=== PATIENT | female | born 1965 | race Caucasian/White ===

== ENCOUNTER → 2016-10-29 | Outpatient (CLI) | payer OTHER ==
[~2016-10-29] MED LIST: ALBU1AER9 INH; ALPR0.5T3 PO; AMIT50TA3 PO; ASPI325T45 PO; ASTN; ATEN-173 PO; CALC0.2510 PO; CYAN1CAP3 INJ; CYNI1000 INJ; ERGO50002 PO; FLUO20CA34 PO; FLUO20CA35 PO; FRCT/ PO; HYDR-5688 PO; INDO50CA97 PO; LEVO100T PO; LEVO150T PO; OMEP20CA9 PO; ONDA8TAB12 PO; PEDICHW53 PO; PHEN37.585 PO; SYMIN/8045 INH; TIZA1CAP2 PO; VITA100C4 PO; VITA1CRE PO; VNTHFA/IN INH; [UNRECOGNIZED DRUG - CODE] PO
--- NOTE | 2016-10-29 09:09 | DIAGNOSTIC IMAGING REPORT ---
SINGLE CONTRAST UPPER GI SERIES CLINICAL HISTORY: Gastroesophageal reflux disease. History of gastric bypass surgery. COMPARISON STUDY: Fluoroscopic upper GI series dated 09/24/2014. TECHNIQUE: A single contrast upper GI series was performed. Spot images of the esophagus and stomach were obtained in multiple obliquities both upright and prone. FINDINGS: The patient swallowed barium without difficulty. The esophagus is structurally normal without evidence of intrinsic or extrinsic mass. The esophageal mucosal pattern is normal. Mild dysmotility is seen in the distal third of the esophagus. Gastroesophageal reflux was observed during the examination. The gastroesophageal junction distends normally. A small sliding-type hiatal hernia is identified. There are postoperative changes consistent with a Laila-en-Y gastric bypass surgery. The gastrojejunostomy is widely patent. No extraluminal contrast is identified. There is no filling of the excluded stomach. There is no evidence of mass or ulceration on this single contrast examination. Fluoroscopy time: 0.9 minutes. Fluoroscopic images: 31 IMPRESSION: 1. Findings are consistent with a Laila-en-Y gastric bypass surgery. The gastrojejunostomy is patent and no extraluminal contrast is seen. 2. The esophagus is morphologically normal. Mild dysmotility is observed. 3. Gastroesophageal reflux was observed. 4. There is a small sliding-type hiatal hernia. Electronically signed by: Markus Noriega M.D. 10/29/2016 9:08 AM Dictated Date/Time: 10/29/2016 9:04 AM
== END | disposition home or self-care (01) ==
LOC: C.RAD 08:31
PROVIDERS: ATTEND Surgery
DX: R10.9 Unspecified abdominal pain (principal); K91.1 Postgastric surgery syndromes

== ENCOUNTER 2017-04-22 13:14 | Emergency (ER) | payer OTHER ==
[~2017-04-22] VITALS: Ht 157.5 cm; Wt 102.2 kg
[~2017-04-22 13:14] MED LIST changes: -CYNI1000 INJ; -FLUO20CA35 PO; -FRCT/ PO; -PHEN37.585 PO; -VITA1CRE PO; -VNTHFA/IN INH
[2017-04-22 13:19] VITALS: TEMP 36.5; Ht 157.5 cm; Wt 102.2 kg
--- NOTE | 2017-04-22 13:54 | EMERGENCY ROOM VISIT NOTE ---
ED Visit Note First contact with patient: 13:25 HPI: constant CP and intermittent lightheadedness PE: AFVSS, NAD NC/AT RRR, no murmurs CTAB Abd soft NT/ND Ext: no edema, erythema Neuro: grossly intact Plan: EKG unremarkable. Trop negative in the setting of > 6 hours of sx. Heart score 1, low risk. ACS unlikely. D-dimer negative. Plan for pcp f/u. I reviewed the patient's past medical history, medications, and visit nursing notes. I discussed the case with the resident, examined the patient, and agree with the findings and plan as documented in the residents note.
--- NOTE | 2017-04-22 14:10 | EMERGENCY ROOM VISIT NOTE ---
History First contact with patient: 13:25 Chief Complaint: ABNORMAL LABS Stated Complaint: HEART ATTACK SX-ABNORMAL LABS History of Present Illness The patient is a 51 year old female who presents to the Emergency Room with complaints of chest heaviness. She was initially seen by her PCP this morning after she presented with complaints of chest heaviness and a funny feeling in her chest . EKG in the office revealed sinus bradycardia with no ST changes. She was recommended to go to the ER for further workup. Complains of chest heaviness across her entire chest with no radiation. She feels that her chest pain is chronic and intermittent. Denies any shortness of breath but states that she has a funny sensation in her chest and also felt a little dizzy. Stated that she had a syncopal episode on Saturday when she was eating in her bed and passed out. she is not sure how long she was passed out and this event was not witnessed by anyone. She complains of a migraine headache that started this morning associated with nausea, photophobia and phonophobia. Denies any fevers or chills, cough, long haul travel, immobilization, calf tenderness. She is a nonsmoker and has a history of PTSD and angina. Family history of heart disease in her father in his 70s. Review of Systems See above for pertinent positives & negatives. A total of 10 systems reviewed and were otherwise negative. Past Medical/Surgical History Medical Problems: (1) Anxiety Social History Smoking Status: Never Smoker Marital Status: Housing Status: lives with significant other Occupation Status: disabled Current/Historical Medications Scheduled Albuterol Hfa (Ventolin Hfa), 2 PUFFS INH Q4H Alprazolam (Xanax Xr), 0.5 MG PO DAILY Atenolol (Tenormin), 12.5 MG PO DAILY Azelastine Hcl (Astelin Nasal [place]), 2 SPRAYS NA BID Calcitriol (Rocaltrol Cap), 0.5 MCG PO DAILY Cyanocobalamin (Cyanocobalamin), 1,000 MCG INJ Q3MO Ergocalciferol (Drisdol), 50,000 UNIT PO WK Fluoxetine (Prozac), 20 MG PO TID Levothyroxine Sodium (Synthroid), 100 MCG PO 5XWK Levothyroxine Sodium (Synthroid), 150 MCG PO 2XWK Ondansetron Hcl (Zofran), 8 MG PO BID Pediatric Multiple Vitamin W/ (Flintstones Gummies), 1 DOSE PO DAILY Phentermine Hcl (Adipex P), 37.5 MG PO DAILY Vitamin E (Topical) (Vitamin E), 1,000 INTER.UNIT PO DAILY Physical Exam Vital Signs Date Time Temp Pulse Resp B/P (MAP) Pulse Ox O2 Delivery O2 Flow Rate FiO2 04/22/17 16:26 61 16 140/81 98 04/22/17 16:19 61 16 140/81 98 Room Air 04/22/17 14:58 49 20 153/89 97 Room Air 04/22/17 14:30 53 04/22/17 13:19 36.5 58 18 140/82 94 Room Air Physical Exam GENERAL: Patient is in no acute distress. HEENT: No acute trauma, normocephalic atraumatic, mucous membranes moist, no nasal congestion, no scleral icterus. NECK: No stridor, no adenopathy, no meningismus, trachea is midline. LUNGS: Clear to auscultation bilaterally, no wheeze, no rhonchi, breath sounds equal. HEART: Without murmurs gallops or rubs, bradycardia ABDOMEN: Soft, nontender, bowel sounds positive. EXTREMITIES: No cyanosis or edema, full range of motion of all the joints without pain or difficulty. NEUROLOGIC: Oriented x 3, no acute motor or sensory deficits, no focal weakness. SKIN: No rash, no jaundice, no diaphoresis. Medical Decision & Procedures ER Provider Diagnostic Interpretation: CHEST ONE VIEW PORTABLE CLINICAL HISTORY: Atypical chest pain COMPARISON STUDY: 02/13/2014 FINDINGS: The cardiac and mediastinal contours are normal. There is no evidence of focal pulmonary consolidation. There is no evidence of failure. No pleural effusions are visualized.[ IMPRESSION: No active disease in the chest. Laboratory Results 04/22/17 14:50 04/22/17 14:50 Test 04/22/17 14:50 Red Blood Count 4.46 M/uL (4.2-5.4) Mean Corpuscular Volume 88.3 fL (80-100) Mean Corpuscular Hemoglobin 28.9 pg (25-34) Mean Corpuscular Hemoglobin Concent 32.7 g/dl (32-36) RDW Standard Deviation 46.5 fL (36.4-46.3) RDW Coefficient of Variation 14.3 % (11.5-14.5) Mean Platelet Volume 9.7 fL (7.4-10.4) D-Dimer 240 ug/L FEU (0-500) Anion Gap 5.0 mmol/L (3-11) Est Creatinine Clear Calc Drug Dose 101.0 ml/min Estimated GFR () 109.7 Estimated GFR (Non- 94.7 BUN/Creatinine Ratio 10.7 (10-20) Calcium Level 9.5 mg/dl (8.5-10.1) Total Bilirubin 0.4 mg/dl (0.2-1) Aspartate Amino Transf (AST/SGOT) 13 U/L (15-37) Alanine Aminotransferase (ALT/SGPT) 21 U/L (12-78) Alkaline Phosphatase 106 U/L (45-117) Troponin I < 0.015 ng/ml (0-0.045) Total Protein 7.2 gm/dl (6.4-8.2) Albumin 3.5 gm/dl (3.4-5.0) Globulin 3.7 gm/dl (2.5-4.0) Albumin/Globulin Ratio 0.9 (0.9-2) Medical Decision Prior records/ancillary studies reviewed. Triage Nursing notes reviewed. Additional history obtained from the . The patient's history was concerning for chest pain. Differential diagnosis: Etiologies such as cardiac ischemia, aortic dissection, pulmonary embolism, pneumonia, pneumothorax, musculoskeletal, infections, pericarditis, myocarditis , esophageal rupture, gastrointestinal, as well as others were entertained. Physical examination: As above. ER treatment provided: CBC, CMP, Troponin and CXR were ordered On reassessment the patient felt better. Diagnostic interpretation by me: The electrocardiogram was negative for pathologic change. The labs were unremarkable Imaging studies: Chest x-ray as above By the evaluation outlined above emergent etiologies such as cardiac ischemia, aortic dissection, pulmonary embolism, pneumonia, pneumothorax, infections, pericarditis, myocarditis, gastrointestinal, as well as others were deemed relatively unlikely. The patient was informed about the findings as listed above. All questions were answered and the patient was pleased with the treatment. Return instructions were outlined and the patient was discharged in stable condition. Referral: The patient was referred back to her primary care physician for follow-up in 2 to 3 days for a recheck of the current condition. 51 y/o F here with c/o intermittent chest pain which started a few days ago. She presented to her PCPs office with chest heaviness and EKG was done which revealed sinus bradycardia with no ST changes. She was recommended to go to the ER for further testing. Her lab work including troponins, EKG, chest x-ray was unremarkable. Her chest pain was likely secondary to anxiety. She was recommended to follow up with her PCP in 2-3 days or return to the ER if she developed any difficulty breathing, chest pain. Impression Primary Impression: Anxiety Departure Information Referrals Diane Kaufman D.O. (PCP) Patient Instructions My [facility] Resident Tracking Resident Involvement: Resident Care Provided Care Provided: Adult ED
--- NOTE | 2017-04-22 14:32 | DIAGNOSTIC IMAGING REPORT ---
CHEST ONE VIEW PORTABLE CLINICAL HISTORY: Atypical chest pain COMPARISON STUDY: 02/13/2014 FINDINGS: The cardiac and mediastinal contours are normal. There is no evidence of focal pulmonary consolidation. There is no evidence of failure. No pleural effusions are visualized.[ IMPRESSION: No active disease in the chest. Electronically signed by: James Jama M.D. 04/22/2017 2:31 PM Dictated Date/Time: 04/22/2017 2:30 PM
[2017-04-22] MEDS ORDERED: VITA1CRE PO (14:50)
[2017-04-22] MEDS ORDERED: VNTHFA/IN INH (14:50)
[2017-04-22] MEDS ORDERED: FRCT/ PO (14:50)
[2017-04-22 15:05] LABS: HEMATOCRIT 39.4 % (37-47); MEAN CELL VOLUME 88.3 fL (80-100); MEAN CORPUSCULAR HEMOGLOBIN 28.9 pg (25-34); MEAN CORPUSCULAR HGB CONC 32.7 g/dl (32-36); MEAN PLATELET VOLUME 9.7 fL (7.4-10.4); PLATELET COUNT 274 K/uL (130-400); RED BLOOD COUNT 4.46 M/uL (4.2-5.4); WHITE BLOOD COUNT 5.99 K/uL (4.8-10.8)
[2017-04-22] MEDS ORDERED: CYNI1000 INJ (15:15)
[2017-04-22] MEDS ORDERED: FLUO20CA35 PO (15:15)
[2017-04-22] MEDS ORDERED: PHEN37.585 PO (15:15)
[2017-04-22 15:28] LABS: ALT/SGPT 21 U/L (12-78); BLOOD UREA NITROGEN 8 mg/dl (7-18); BUN/CREATININE RATIO 10.7 (10-20); CALCIUM 9.5 mg/dl (8.5-10.1); CARBON DIOXIDE 31 mmol/L (21-32); CHLORIDE 106 mmol/L (98-107); CREATININE 0.73 mg/dl (0.60-1.20); GLUCOSE 81 mg/dl (70-99); POTASSIUM 4.3 mmol/L (3.5-5.1); SODIUM 142 mmol/L (136-145)
[2017-04-22 15:32] LABS: ALB/GLOB RATIO 0.9 (0.9-2); ALKALINE PHOSPHATASE 106 U/L (45-117); AST/SGOT 13 U/L (15-37)
[2017-04-22 16:26] VITALS: BP 140/81; PULSE 61; O2SAT 98
== END 2017-04-22 16:26 | disposition home or self-care (01) ==
LOC: C.EDB 13:16 → C.EDC 16:26
DX: F41.9 Anxiety disorder, unspecified (principal); F43.10 Post-traumatic stress disorder, unspecified; Z82.49 Family history of ischemic heart disease and other diseases of the circulatory system; Z79.899 Other long term (current) drug therapy

== ENCOUNTER 2022-07-08 10:34 | Inpatient (IN) ==
--- NOTE | 2022-07-08 11:23 | Emergency Department Note ---
Impression & Plan Acute hypoxemic respiratory failure, Influenza A, Asthma exacerbation ED Provider Note NAME: YOAN ARAUJO AGE: 56 SEX: F : 1965 ARRIVES VIA: Walk-In INFORMANT: Patient, ED PROVIDER(S): Josias Woods MD Chief Complaint: Body aches, chest pain, headache HPI: Patient presents due to concern for nonproductive cough body aches and chest pains. The patient significant other recently was admitted for RSV. Patient does complain of some shortness of breath and does have a history of asthma. Patient states that her symptoms began last evening. The patient does complain of a heaviness in the chest that is nonradiating no associated nausea or vomiting or diaphoresis. Patient does not complain of exertional symptoms. No history of DVT or PE no leg swelling or calf pain. Patient has been taking [id number] medications but without improvement in symptoms. Patient's headache is frontal achy and nonradiating. No prior history of heart disease. The patient has been trying her inhalers ROS: See HPI for pertinent positives and negatives. A total of 10 systems were reviewed and otherwise negative. Past medical history: See below Surgical history: See below Social history: See below Physical Exam: GENERAL: NAD, wearing a mask, non-toxic. EYE EXAM: Normal conjunctiva. PERRL, no anisocoria and EOM's grossly intact w/o pain. NECK: Supple, no nuchal rigidity, no adenopathy, non-tender. No signs of meningismus. FROM of the neck with good chin to chest and neck extension. No stridor. LUNGS: Scant end expiratory wheezes in the bases. Normal chest wall mechanics. Chest: Reproducible sternal chest wall pain. HEART: Tachycardic and regular, no MRG. ABDOMEN: Abdomen soft, non-tender, normo-active bowel sounds, no masses, no rebound or guarding. BACK: No CVA TTP. SKIN: No rashes and no bruising. UPPER EXTREMITIES: Upper extremities are grossly normal. LOWER EXTREMITIES: Grossly normal, no edema. Negative Homans' sign bilaterally. NEURO EXAM: A&O x3, cranial nerves II-XII grossly intact, normal speech, moves all 4 extremities. Good [id number], no drift. No sensory deficits. Differential diagnoses: Cardiac ischemia, aortic dissection, pulmonary embolism, pneumothorax, pneumonia, pericarditis, myocarditis, esophageal rupture, GERD, cholecystitis, pancreatitis, musculoskeletal, as well as other pathologies. Course: Patient was seen and evaluated the bedside. Full history physical exam was performed. EKG interpreted by me Sinus tachycardia, rate of 111, normal intervals normal axis no ST elevations, T wave inversions in the lateral leads. These do appear to be more prominent from comparison EKG completed January 11, 2019. Imaging Studies: See Below Cardiac monitoring: An order was placed for continuous cardiac monitoring. The monitor shows a rate of 102 with tachycardic and regular rhythm. MDM: Patient presents due to concern for chest pain and headache and myalgias. Patient's presentation does sound consistent with viral etiology. Patient did have blood work completed along with an EKG troponin chest x-ray. Viral swab also ordered. Given the patient's history of asthma steroids were ordered. 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 Do think the patient could tolerate a one-time dose. Toradol was ordered. Hallucinations listed as an adverse reaction believe the patient may benefit from the Toradol. Patient is not meningitic or encephalopathic and has a nonfocal neurologic exam. Do not believe she requires CT of the head. The patient did have persistent hypoxemia even after several neb treatments. Given this with the associated Flu 2 believe the patient would benefit from inpatient treatment. Tamiflu was ordered. RSV and COVID-negative. Patient's kidney function is unremarkable. Mild leukopenia with a normal H&H and platelet count. I did speak the on-call hospitalist Rox Cook PA-C and the patient was admitted by the [facility] service. Critical Care: I have personally spent 35 minutes of critical care time in direct management of this patient. This includes bedside care, interpretation of diagnostic studies, and testing, discussion with consultants, patient, and family members, and other require inpatient management activities. This 35 minutes is in excess of all separately billable procedures. Past Med/Surg History Medical History Acquired hypothyroidism Anxiety Asthma Cancer Depression Heart disease HTN (hypertension) Left knee DJD Left knee pain RADHA (obstructive sleep apnea) Surgical History H/O gastric bypass H/O knee surgery H/O total thyroidectomy H/O vaginal hysterectomy Family History Other Asthma Cancer Social History Smoking Status: Never smoker Tobacco Type: Cigarettes Hx Alcohol Use: No Hx Substance Use: No Preferred Language: Finnish Communication Ability: Effective Religious Assistant Required: No Beliefs That Will Affect Care: None Current Living Situation: Spouse Other Information That Helps Us Care for You: No Feels Safe at Home: Yes Safety Concerns: Feels Safe At This Time Allergies Allergies Allergy/AdvReac Type Severity Reaction Status Date / Time Iodinated Contrast Media Allergy Severe FLUSHING, Verified 11/21/21 22:51 SHORTNESS OF BREATH lidocaine Allergy Severe SHORTNESS Verified 11/21/21 22:51 OF BREATH ranitidine Allergy Severe NAUSEA, Verified 11/21/21 22:51 HIVES Penicillins Allergy Intermediate HIVES Verified 11/21/21 22:51 Sulfa (Sulfonamide Allergy Intermediate HIVES Verified 11/21/21 22:51 Antibiotics) chlorpromazine Allergy Mild Unknown Verified 11/21/21 22:51 prochlorperazine Allergy Mild Unknown Verified 11/21/21 22:51 promethazine Allergy Mild Unknown Verified 11/21/21 22:51 clarithromycin AdvReac Severe RASH Verified 11/21/21 22:51 clonazepam AdvReac Severe PARANOIA Verified 11/21/21 22:51 Corticosteroids AdvReac Severe ALTERED Verified 11/21/21 22:51 (Glucocorticoids) PERSONALITY doxycycline AdvReac Intermediate INEFFECTIVE Verified 11/21/21 22:51 fentanyl AdvReac Intermediate VOMITING, Verified 11/21/21 22:51 HEADACHE, ketorolac AdvReac Intermediate HALLUCINATI Verified 11/21/21 22:51 ONS tramadol AdvReac Intermediate HALLUCINATE Verified 11/21/21 22:51 Home Meds Home Medications Medication Instructions Recorded Confirmed albuterol sulfate 90 mcg/actuation 2 puff inhalation Q4H PRN COUGH, 01/11/19 07/08/22 aerosol inhaler WHEEZE, PRIOR TO EXERCISE, SOB calcitriol 0.25 mcg capsule 0.25 mcg PO DAILY 01/11/19 07/08/22 citalopram 40 mg tablet 40 mg PO DAILY 01/11/19 07/08/22 cyanocobalamin (vitamin B-12) 1,000 mcg IM .[id number] 01/11/19 07/08/22 1,000 mcg/mL injection solution metoprolol tartrate 25 mg tablet 12.5 mg PO BID 01/11/19 07/08/22 ondansetron 8 mg disintegrating 8 mg PO Q12H PRN Nausea 01/11/19 07/08/22 tablet pediatric multivitamin no.49 1 tab PO DAILY 01/11/19 07/08/22 (Flintstones Gummies chewable tablet) raloxifene 60 mg tablet 60 mg PO DAILY 01/11/19 07/08/22 amitriptyline 10 mg tablet 20 mg PO HS 11/21/21 07/08/22 azelastine 137 mcg (0.1 %) nasal 2 spray intranasal DAILY PRN 11/21/21 07/08/22 spray aerosol Congestion fluticasone propionate 44 2 puff inhalation BID 11/21/21 07/08/22 mcg/actuation HFA aerosol inhaler (Flovent HFA) ipratropium 0.5 mg-albuterol 3 mg 3 ml inhalation QID PRN Shortness 11/21/21 07/08/22 (2.5 mg base)/3 mL nebulization Of Breath soln levothyroxine 175 mcg tablet 175 mcg PO DAILYBB 11/21/21 07/08/22 lorazepam 1 mg tablet 1 mg PO TID PRN Anxiety 11/21/21 07/08/22 omeprazole 20 mg capsule,delayed 20 mg PO DAILYBB 11/21/21 07/08/22 release Results & Data (ED) Vital Signs Vital Signs - 24 hr 07/08/22 10:38 07/08/22 12:33 07/08/22 13:00 Temperature 36.9 C Temperature Source Temporal Artery Scan Pulse Rate 117 H 112 H Pulse Rate from SpO2 Sensor 112 H Respiratory Rate 20 20 Respiratory Effort / Characteristics Short of Breath Blood Pressure 174/108 H 155/100 H 152/98 H Blood Pressure Mean 130 118 116 Blood Pressure Position Sitting Pulse Oximetry 91 98 Oxygen Delivery Method Room Air Room Air Oxygen Flow Rate Sepsis Recent Fever Within 48 Hours No Sepsis New/Unexplained Change in Mental Status N/A Sepsis Action Taken by Nursing No Action Required 07/08/22 13:00 07/08/22 13:30 07/08/22 14:00 Temperature Temperature Source Pulse Rate 106 H 103 H Pulse Rate from SpO2 Sensor 107 H 103 H Respiratory Rate 26 H 11 L Respiratory Effort / Characteristics Blood Pressure 146/100 H Blood Pressure Mean 115 Blood Pressure Position Pulse Oximetry 90 89 L 89 L Oxygen Delivery Method Room Air Room Air Room Air Oxygen Flow Rate Sepsis Recent Fever Within 48 Hours Sepsis New/Unexplained Change in Mental Status Sepsis Action Taken by Nursing 07/08/22 14:00 07/08/22 14:30 07/08/22 15:00 Temperature Temperature Source Pulse Rate 117 H 112 H Pulse Rate from SpO2 Sensor 117 H 113 H Respiratory Rate 26 H 18 Respiratory Effort / Characteristics Blood Pressure 156/103 H Blood Pressure Mean 120 Blood Pressure Position Pulse Oximetry 93 93 Oxygen Delivery Method Nasal Cannula Oxygen Flow Rate 2 Sepsis Recent Fever Within 48 Hours Sepsis New/Unexplained Change in Mental Status Sepsis Action Taken by Nursing 07/08/22 15:00 Temperature Temperature Source Pulse Rate 114 H Pulse Rate from SpO2 Sensor 114 H Respiratory Rate 25 H Respiratory Effort / Characteristics Blood Pressure Blood Pressure Mean Blood Pressure Position Pulse Oximetry 92 Oxygen Delivery Method Oxygen Flow Rate Sepsis Recent Fever Within 48 Hours Sepsis New/Unexplained Change in Mental Status Sepsis Action Taken by [facility] Medications Current Medication List: was personally reviewed by me Laboratory Data Attestation: I reviewed the patient's lab results. Result diagrams: 07/08/22 12:10 07/08/22 12:10 Lab Results 07/08/22 07/08/22 07/08/22 Range/Units 12:10 12:10 12:10 WBC 4.78 L (4.8-10.8) K/ul RBC 4.56 (3.93-5.22) M/uL Hgb 12.4 (12.0-16.0) g/dl Hct 38.9 (34.1-44.9) % MCV 85.3 (80.0-100.0) fL MCH 27.2 (25.0-34.0) pg MCHC 31.9 L (32.0-36.0) g/dL RDW Std Deviation 47.6 H (36.4-46.3) fL RDW Coeff of Jacy 15.4 H (11.5-14.5) % Plt Count 233 (130-400) K/uL MPV 10.1 (9.4-12.3) fL Immature Gran % (Auto) 0.6 % Neut % (Auto) 69.4 % Lymph % (Auto) 10.0 % [place] % (Auto) 18.8 % Eos % (Auto) 0.4 % Baso % (Auto) 0.8 % Neut # (Auto) 3.31 (1.4-6.5) K/uL Lymph # (Auto) 0.48 L (1.2-3.4) K/uL [place] # (Auto) 0.90 H (0.24-0.82) K/uL Eos # (Auto) 0.02 (0-0.50) K/uL Baso # (Auto) 0.04 (0-0.2) K/uL Immature Gran # (Auto) 0.03 H (0.00-0.02) K/uL PT 10.9 (9.0-12.0) Seconds INR 1.0 (0.9-1.1) Sodium 139 (136-145) mmol/L Potassium 3.9 (3.5-5.1) mmol/L Chloride 102 (98-107) mmol/L Carbon Dioxide 28 (21-32) mmol/L Anion Gap 9 (3-11) BUN 9 (6-23) mg/dl Creatinine 0.80 (0.6-1.2) mg/dl Est Cr Clr Drug Dosing 94.4 ml/min Est GFR ( Amer) 94.9 ml/min Est GFR (Non-Af Amer) 81.8 ml/min BUN/Creatinine Ratio 11.3 (10-20) Glucose 116 H (70-99(Fasting)) mg/dl Calcium 9.1 (8.5-10.1) mg/dl Magnesium 1.7 (1.7-2.4) mg/dl Total Bilirubin 0.4 (0.2-1.0) mg/dl AST 17 (13-39) U/L ALT 15 (7-52) U/L Alkaline Phosphatase 89 (34-104) U/L Troponin I High Sens 5.5 (0-14) pg/ml Total Protein 7.4 (6.0-8.3) gm/dl Albumin 4.2 (3.4-5.0) gm/dl Globulin 3.2 (2.5-4.0) gm/dl Albumin/Globulin Ratio 1.3 (0.9-2) TSH (0.300-4.500) uIu/ml Free T4 (0.61-1.60) ng/dl SARS-CoV-2 (PCR) (Negative) Influenza Type A (PCR) (Neg) Influenza Type B (PCR) (Neg) RSV (RT-PCR) (Neg) 07/08/22 07/08/22 Range/Units 12:10 12:10 WBC (4.8-10.8) K/ul RBC (3.93-5.22) M/uL Hgb (12.0-16.0) g/dl Hct (34.1-44.9) % MCV (80.0-100.0) fL MCH (25.0-34.0) pg MCHC (32.0-36.0) g/dL RDW Std Deviation (36.4-46.3) fL RDW Coeff of Jacy (11.5-14.5) % Plt Count (130-400) K/uL MPV (9.4-12.3) fL Immature Gran % (Auto) % Neut % (Auto) % Lymph % (Auto) % [place] % (Auto) % Eos % (Auto) % Baso % (Auto) % Neut # (Auto) (1.4-6.5) K/uL Lymph # (Auto) (1.2-3.4) K/uL [place] # (Auto) (0.24-0.82) K/uL Eos # (Auto) (0-0.50) K/uL Baso # (Auto) (0-0.2) K/uL Immature Gran # (Auto) (0.00-0.02) K/uL PT (9.0-12.0) Seconds INR (0.9-1.1) Sodium (136-145) mmol/L Potassium (3.5-5.1) mmol/L Chloride (98-107) mmol/L Carbon Dioxide (21-32) mmol/L Anion Gap (3-11) BUN (6-23) mg/dl Creatinine (0.6-1.2) mg/dl Est Cr Clr Drug Dosing ml/min Est GFR ( Amer) ml/min Est GFR (Non-Af Amer) ml/min BUN/Creatinine Ratio (10-20) Glucose (70-99(Fasting)) mg/dl Calcium (8.5-10.1) mg/dl Magnesium (1.7-2.4) mg/dl Total Bilirubin (0.2-1.0) mg/dl AST (13-39) U/L ALT (7-52) U/L Alkaline Phosphatase (34-104) U/L Troponin I High Sens (0-14) pg/ml Total Protein (6.0-8.3) gm/dl Albumin (3.4-5.0) gm/dl Globulin (2.5-4.0) gm/dl Albumin/Globulin Ratio (0.9-2) TSH 0.039 L (0.300-4.500) uIu/ml Free T4 1.04 (0.61-1.60) ng/dl SARS-CoV-2 (PCR) NEGATIVE (Negative) Influenza Type A (PCR) Positive A* (Neg) Influenza Type B (PCR) Negative (Neg) RSV (RT-PCR) Negative (Neg) Administered Medications Albuterol (Albut/Ipratrop 3mg/0.5mg Neb 3 Ml Vial) 3 ml NEB QIDR REYES; Protocol Stop: 08/07/22 18:59 Last Admin: 07/08/22 19:47 Dose: 3 ml Documented By: CS Amitriptyline HCl (Amitriptyline Hcl 10 Mg Tab) 20 mg PO HS REYES Stop: 08/07/22 20:59 Last Admin: 07/08/22 19:41 Dose: 20 mg Documented By: WILIAM Enoxaparin Sodium (Enoxaparin Inj 40 Mg/0.4 Ml Syr) 40 mg SQ Q24H REYES Stop: 08/07/22 19:59 Last Admin: 07/08/22 19:39 Dose: 40 mg Documented By: BL Metoprolol Tartrate (Metoprolol Tartrate 25 Mg Tab) 12.5 mg PO BID REYES Stop: 08/07/22 20:59 Last Admin: 07/08/22 19:42 Dose: 12.5 mg Documented By: WILIAM Discontinued Medications Acetaminophen (Acetaminophen 500 Mg Tab) 1,000 mg PO NOW STA Stop: 07/08/22 11:40 Last Admin: 07/08/22 12:11 Dose: 1,000 mg Documented By: [id number] Albuterol (Albut/Ipratrop 3mg/0.5mg Neb 3 Ml Vial) 3 ml INH NOW STA Stop: 07/08/22 11:40 Last Admin: 07/08/22 12:11 Dose: 3 ml Documented By: [id number] Albuterol (Albut/Ipratrop 3mg/0.5mg Neb 3 Ml Vial) 3 ml NEB NOW STA; Protocol Stop: 07/08/22 13:02 Last Admin: 07/08/22 13:22 Dose: 3 ml Documented By: [id number] Citalopram Hydrobromide (Citalopram 40 Mg Tab) 40 mg PO NOW STA Stop: 07/08/22 15:12 Last Admin: 07/08/22 16:31 Dose: 40 mg Documented By: [id number] Sodium Chloride (Nss 1000ml) 1,000 mls @ 999 mls/hr IV .Q1H1M REYES Stop: 07/08/22 12:45 Last Infusion: 07/08/22 13:35 Dose: 0 mls/hr Documented By: [id number] Admin: 07/08/22 12:12 Dose: 999 mls/hr Documented By: [id number] Sodium Chloride (Nss 1000ml) 1,000 mls @ 999 mls/hr IV .Q1H1M ONE Stop: 07/08/22 14:55 Last Infusion: 07/08/22 16:16 Dose: 0 mls/hr Documented By: [id number] Admin: 07/08/22 14:21 Dose: 999 mls/hr Documented By: [id number] Ketorolac Tromethamine (Ketorolac Tromethamine 15 Mg/Ml Vial) 10 mg IV NOW ONE Stop: 07/08/22 11:43 Last Admin: 07/08/22 12:12 Dose: 10 mg Documented By: [id number] Menthol (Cough Drop (Sugar Free) Aaliyah 24 Aaliyah/1 Box) Confirm Administered Dose 24 aaliyah BUCCAL .STK-MED ONE Stop: 07/08/22 18:40 Last Admin: 07/08/22 18:53 Dose: 24 aaliyah Documented By: [id number] Methylprednisolone (Methylprednisolone 125 Mg/2 Ml Vial) 40 mg IV NOW STA Stop: 07/08/22 11:40 Last Admin: 07/08/22 12:12 Dose: 40 mg Documented By: [id number] Metoprolol Tartrate (Metoprolol Tartrate 25 Mg Tab) 12.5 mg PO NOW STA Stop: 07/08/22 15:12 Last Admin: 07/08/22 16:13 Dose: 12.5 mg Documented By: [id number] Oseltamivir Phosphate (Oseltamivir Phosphate 75 Mg Cap) 75 mg PO NOW STA; Protocol Stop: 07/08/22 13:48 Last Admin: 07/08/22 14:21 Dose: 75 mg Documented By: [id number] Imaging Data Radiologist's Impression: Chest X-Ray 07/08/22 11:39 XR chest 1V portable HISTORY: 56 years-old Female weakness acute weakness COMPARISON: Chest and rib radiographs 11/21/2021 TECHNIQUE: AP view of the chest FINDINGS: Cardiomediastinal and hilar silhouettes are within normal limits. No pneumothorax, pleural effusion, airspace consolidation or overt pulmonary edema. Degenerative changes of the shoulders and spine. IMPRESSION: No acute process. ACT 112: Negative or not required by law. The above report was generated using voice recognition software. It may contain grammatical, syntax or spelling errors. Electronically signed by: Stanley Verma M.D. 07/08/2022 12:17 PM Discharge Plan Visit Data Chief Complaint: Illness Stated Complaint: CHEST PAIN ED Provider: Josias Woods Discharge Problem: Acute hypoxemic respiratory failure, Influenza A, Asthma exacerbation Patient Disposition: Admitted As Inpatient Discharge Instructions Interventions: ED Discharge Assessment Last Done: 07/08/22 18:33
[2022-07-08] MEDS ORDERED: methylPREDNISolone 125 MG/2 ML VIAL IV STA (11:39)
[2022-07-08] MEDS ORDERED: ALBUT/IPRATROP 3MG/0.5MG NEB 3 ML VIAL INH STA (11:39)
[2022-07-08] MEDS ORDERED: ACETAMINOPHEN 500 MG TAB PO STA (11:39)
[2022-07-08] MEDS ORDERED: KETOROLAC TROMETHAMINE 15 MG/ML VIAL IV ONE (11:42)
[2022-07-08] MEDS ORDERED: SODIUM CHLORIDE 0.9% 1000ML 1,000 ML IV SCH (11:45)
--- NOTE | 2022-07-08 12:18 | XRay Report ---
XR chest 1V portable HISTORY: 56 years-old Female weakness acute weakness COMPARISON: Chest and rib radiographs 11/21/2021 TECHNIQUE: AP view of the chest FINDINGS: Cardiomediastinal and hilar silhouettes are within normal limits. No pneumothorax, pleural effusion, airspace consolidation or overt pulmonary edema. Degenerative changes of the shoulders and spine. IMPRESSION: No acute process. ACT 112: Negative or not required by law. The above report was generated using voice recognition software. It may contain grammatical, syntax o r spelling errors. Electronically signed by: Stanley Verma M.D. 07/08/2022 12:17 PM
[2022-07-08 12:31] LABS: Basophils # (auto) 0.04 K/uL (0-0.2); Basophils % (auto) 0.8 %; Eosinophils # (auto) 0.02 K/uL (0-0.50); Eosinophils % (auto) 0.4 %; Hematocrit (blood only) 38.9 % (34.1-44.9); Hemoglobin 12.4 g/dl (12.0-16.0); Immature Granulocytes # (auto) 0.03 K/uL (0.00-0.02); Immature Granulocytes % (auto) 0.6 %; Lymphocytes # (auto) 0.48 K/uL (1.2-3.4); Mean Corpuscular Hemoglobin 27.2 pg (25.0-34.0); Mean Corpuscular Hgb Conc 31.9 g/dL (32.0-36.0); Mean Corpuscular Volume 85.3 fL (80.0-100.0); Mean Platelet Volume 10.1 fL (9.4-12.3); Monocytes % (auto) 18.8 %; Neutrophils # (auto) 3.31 K/uL (1.4-6.5); Neutrophils % (auto) 69.4 %; Platelet Count 233 K/uL (130-400); RDW Coefficient of Variation 15.4 % (11.5-14.5); RDW Standard Deviation 47.6 fL (36.4-46.3); Red Blood Count 4.56 M/uL (3.93-5.22); White Blood Count 4.78 K/ul (4.8-10.8)
[2022-07-08 12:42] LABS: Prothrombin Time 10.9 Seconds (9.0-12.0)
[2022-07-08 12:52] LABS: Albumin Globulin Ratio 1.3 (0.9-2); Albumin Level 4.2 gm/dl (3.4-5.0); BUN Creatinine Ratio 11.3 (10-20); Bilirubin,Total 0.4 mg/dl (0.2-1.0); Calcium 9.1 mg/dl (8.5-10.1); Creatinine Clr Calc Pharmacy 94.4 ml/min; Est GFR (African American) 94.9 ml/min; Est GFR (Non-African American) 81.8 ml/min; Globulin 3.2 gm/dl (2.5-4.0); Magnesium 1.7 mg/dl (1.7-2.4); Potassium 3.9 mmol/L (3.5-5.1); Total Protein 7.4 gm/dl (6.0-8.3)
[2022-07-08 12:57] LABS: Troponin I High Sensitivity 5.5 pg/ml (0-14)
[2022-07-08] MEDS ORDERED: ALBUT/IPRATROP 3MG/0.5MG NEB 3 ML VIAL NEB STA (13:01)
[2022-07-08 13:05] LABS: Thyroid Stimulating Hormone 0.039 uIu/ml (0.300-4.500)
[2022-07-08 13:37] LABS: T4 Free Thyroxine 1.04 ng/dl (0.61-1.60)
[2022-07-08 13:45] LABS: Influenza B virus by PCR Negative (Neg); RSV by PCR Negative (Neg); SARS CoV2 RNA(COVID-19) Ceph NEGATIVE (Negative)
[2022-07-08 13:47] LABS: Influenza A virus by PCR Positive (Neg)
[2022-07-08] MEDS ORDERED: OSELTAMIVIR PHOSPHATE 75 MG CAP PO STA (13:47)
[2022-07-08] MEDS ORDERED: SODIUM CHLORIDE 0.9% 1000ML 1,000 ML IV ONE (13:55)
--- NOTE | 2022-07-08 14:57 | History & Physical Report ---
Date of Service July 08, 2022 Assessment & Plan (1) Acute hypoxemic respiratory failure: (2) Influenza A: (3) Asthma exacerbation: (4) Depression: (5) Anxiety: (6) Acquired hypothyroidism: (7) RADHA (obstructive sleep apnea): Plan This is a 56yo F with a PMH of asthma, hypertension, depression, anxiety, history of gastric bypass, hypothyroidism, RADHA and other medical problems listed below who presents with flulike symptoms and chest tightness since yesterday and was found to have hypoxia and Flu A. Acute hypoxic respiratory failure Influenza A Asthma exacerbation Developed symptoms yesterday, + for influenza A CXR did not show acute abnormalities ABG pending Received solumedrol in ED. Will continue steroids with prednisone 40mg daily in AM Duonebs QIDR, supplemental oxygen, continue Tamiflu Abnormal EKG EKG noted some lateral T wave changes which are seen on previous EKGs Initial high sensitive troponin negative. Will check once more Monitor on telemetry, repeat EKG in a.m. Anxiety Depression Given missed dose of citalopram. Home Ativan as needed Hypertension Given missed dose of Lopressor in ED. Give evening dose as well Hypothyroidism Continue levothyroxine RADHA CPAP use HS at home. Currently on [place] supplemental O2 DVT Ppx: SQ lovenox Code status: FULL PCP: Mandeep Dispo: Admitted to [facility] tele Patient seen in collaboration with Dr. Waters. Please see addendum. History of Present Illness Chief Complaint: flulike sx, SOB Primary Care Provider: Diane Kaufman, DO This is a 56yo F with a PMH of asthma, hypertension, depression, anxiety, history of gastric bypass, hypothyroidism, RADHA and other medical problems listed below who presents with flulike symptoms and chest tightness since yesterday. Patient started to feel poorly yesterday with chills, body aches, congestion with mild productive cough, wheezing and chest tightness that is non-radiating. Chest discomfort does not feel similar to when she had a heart attack. Also endorsing nausea and diarrhea but no vomiting. 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 Has ongoing urinary incontinence. Did not check if she had a fever. No headache, vomiting, dysuria or constipation. Allergies Allergy/AdvReac Type Severity Reaction Status Date / Time Iodinated Contrast Media Allergy Severe FLUSHING, Verified 11/21/21 22:51 SHORTNESS OF BREATH lidocaine Allergy Severe SHORTNESS Verified 11/21/21 22:51 OF BREATH ranitidine Allergy Severe NAUSEA, Verified 11/21/21 22:51 HIVES Penicillins Allergy Intermediate HIVES Verified 11/21/21 22:51 Sulfa (Sulfonamide Allergy Intermediate HIVES Verified 11/21/21 22:51 Antibiotics) chlorpromazine Allergy Mild Unknown Verified 11/21/21 22:51 prochlorperazine Allergy Mild Unknown Verified 11/21/21 22:51 promethazine Allergy Mild Unknown Verified 11/21/21 22:51 clarithromycin AdvReac Severe RASH Verified 11/21/21 22:51 clonazepam AdvReac Severe PARANOIA Verified 11/21/21 22:51 Corticosteroids AdvReac Severe ALTERED Verified 11/21/21 22:51 (Glucocorticoids) PERSONALITY doxycycline AdvReac Intermediate INEFFECTIVE Verified 11/21/21 22:51 fentanyl AdvReac Intermediate VOMITING, Verified 11/21/21 22:51 HEADACHE, ketorolac AdvReac Intermediate HALLUCINATI Verified 11/21/21 22:51 ONS tramadol AdvReac Intermediate HALLUCINATE Verified 11/21/21 22:51 Home Medications Medication Instructions Recorded Confirmed Type albuterol sulfate 90 mcg/actuation 2 puff inhalation Q4H PRN COUGH, 01/11/19 07/08/22 History aerosol inhaler WHEEZE, PRIOR TO EXERCISE, SOB calcitriol 0.25 mcg capsule 0.25 mcg PO DAILY 01/11/19 07/08/22 History citalopram 40 mg tablet 40 mg PO DAILY 01/11/19 07/08/22 History cyanocobalamin (vitamin B-12) 1,000 mcg IM [id number] 01/11/19 07/08/22 History 1,000 mcg/mL injection solution metoprolol tartrate 25 mg tablet 12.5 mg PO BID 01/11/19 07/08/22 History ondansetron 8 mg disintegrating 8 mg PO Q12H PRN Nausea 01/11/19 07/08/22 History tablet pediatric multivitamin no.49 1 tab PO DAILY 01/11/19 07/08/22 History (Flintstones Gummies chewable tablet) raloxifene 60 mg tablet 60 mg PO DAILY 01/11/19 07/08/22 History amitriptyline 10 mg tablet 20 mg PO HS 11/21/21 07/08/22 History azelastine 137 mcg (0.1 %) nasal 2 spray intranasal DAILY PRN 11/21/21 07/08/22 History spray aerosol Congestion fluticasone propionate 44 2 puff inhalation BID 11/21/21 07/08/22 History mcg/actuation HFA aerosol inhaler (Flovent HFA) ipratropium 0.5 mg-albuterol 3 mg 3 ml inhalation QID PRN Shortness 11/21/21 07/08/22 History (2.5 mg base)/3 mL nebulization Of Breath soln levothyroxine 175 mcg tablet 175 mcg PO DAILYBB 11/21/21 07/08/22 History lorazepam 1 mg tablet 1 mg PO TID PRN Anxiety 11/21/21 07/08/22 History omeprazole 20 mg capsule,delayed 20 mg PO DAILYBB 11/21/21 07/08/22 History release Past Med/Surg History Medical History (Updated 07/08/22 @ 18:02 by Rox Cook PA-C) Acquired hypothyroidism Anxiety Asthma Cancer Depression Heart disease HTN (hypertension) Left knee DJD Left knee pain RADHA (obstructive sleep apnea) Surgical History (Updated 07/08/22 @ 17:56 by Rox Cook PA-C) H/O gastric bypass H/O knee surgery H/O total thyroidectomy H/O vaginal hysterectomy Family History Other Asthma Cancer Social History Smoking Status: Former smoker Tobacco Type: Cigarettes Preferred Language: Moroccan Feels Safe at Home: Yes Review of Systems Review of Systems: At least ten systems reviewed and negative except as noted in the HPI. Physical Exam Physical Exam: Please see Dr. Waters's addendum for physical exam. Results & Data Results & Data ([facility]) Vital Signs (Past 12 Hours) Vital Signs Temp Pulse Resp BP Pulse Ox O2 Del Method O2 Flow Rate 07/08/22 14:00 117 H 26 H 93 Nasal Cannula 2 07/08/22 14:00 146/100 H 89 L Room Air 07/08/22 13:30 103 H 11 L 89 L Room Air 07/08/22 13:00 106 H 26 H 90 Room Air 07/08/22 13:00 152/98 H 07/08/22 12:33 112 H 20 155/100 H 98 Room Air 07/08/22 10:38 36.9 C 117 H 20 174/108 H 91 Room Air Laboratory Results Short CBC 07/08/22 Range/Units 12:10 WBC 4.78 L (4.8-10.8) K/ul Hgb 12.4 (12.0-16.0) g/dl Hct 38.9 (34.1-44.9) % Plt Count 233 (130-400) K/uL BMP 07/08/22 12:10 Sodium 139 Potassium 3.9 Chloride 102 Carbon Dioxide 28 BUN 9 Creatinine 0.80 Glucose 116 H Calcium 9.1 Liver Function 07/08/22 Range/Units 12:10 Total Bilirubin 0.4 (0.2-1.0) mg/dl AST 17 (13-39) U/L ALT 15 (7-52) U/L Alkaline Phosphatase 89 (34-104) U/L Albumin 4.2 (3.4-5.0) gm/dl Diagnostic Findings Chest X-Ray 07/08/22 11:39 XR chest 1V portable HISTORY: 56 years-old Female weakness acute weakness COMPARISON: Chest and rib radiographs 11/21/2021 TECHNIQUE: AP view of the chest FINDINGS: Cardiomediastinal and hilar silhouettes are within normal limits. No pneumothorax, pleural effusion, airspace consolidation or overt pulmonary edema. Degenerative changes of the shoulders and spine. IMPRESSION: No acute process. ACT 112: Negative or not required by law. The above report was generated using voice recognition software. It may contain grammatical, syntax or spelling errors. Electronically signed by: Stanley Verma M.D. 07/08/2022 12:17 PM Supervising Physician Co-Signing Physician Notes Date of Service: July 08, 2022 History and physical exam performed by me. History notable for 56-year-old woman who presented with cough, congestion, shortness of breath, myalgias, headache, chills, an episode of diarrhea started yesterday. Also reports central chest pressure especially with cough and shortness of breath which is improving in ER. Reports chronic lower abd pain which PCP is working up, chronic urinary incontinence Reported positive contact of RSV, her boyfriend last week. On exam, General: Obese, in no distress Eyes: PERRL, conjunctivae normal, not pale, anicteric sclerae, EOM intact bilaterally ENMT: External ear and nose normal, oropharynx normal Respiratory: On nasal cannula, no respiratory distress, Scattered rhonchi Cardiovascular: Tachycardic, regular rhythm S1 S2 Gastrointestinal (Abdomen): Abdomen is not distended, soft, non-tender to palpation, no guarding, no palpable hepatosplenomegaly, normal bowel sounds Musculoskeletal: No pedal edema Neurologic: No facial asymmetry/dysarthria, No focal weakness, sensation grossly intact Psychiatric: Alert and oriented x 3, euthymic affect, no depressed affect Resp PCR + for influenza A CXR did not show acute abnormalities Acute resp failure with hypoxia Asthma exacerbation Influenza infection Continue oxygen supplementation Check ABG Continue nebs Got solumedrol in ER. Change to prednisone EKG noted some lateral T wave changes which are not new Initial trop is negative. Will repeat 6h from previous one Telemetry monitoring Resume home metoprolol, levothyroxine, lexapro, ativan Agree with other plans as detailed by Rox Lomas PA-C
[2022-07-08] MEDS ORDERED: ALBUTEROL HFA 8 GM INHALER INH PRN (15:05)
[2022-07-08] MEDS ORDERED: CITALOPRAM 40 MG TAB PO STA (15:11)
[2022-07-08] MEDS ORDERED: METOPROLOL TARTRATE 25 MG TAB PO STA (15:11)
--- NOTE | 2022-07-08 15:20 | Communication Note ---
Date of Service: July 08, 2022 History and physical exam performed by me. History notable for 56-year-old woman who presented with cough, congestion, shortness of breath, myalgias, headache, chills, an episode of diarrhea started yesterday. Also reports central chest pressure especially with cough and shortness of breath which is improving in ER. Reports chronic lower abd pain which PCP is working up, chronic urinary incontinence Reported positive contact of RSV, her boyfriend last week. On exam, General: Obese, in no distress Eyes: PERRL, conjunctivae normal, not pale, anicteric sclerae, EOM intact bilaterally ENMT: External ear and nose normal, oropharynx normal Respiratory: On nasal cannula, no respiratory distress, Scattered rhonchi Cardiovascular: Tachycardic, regular rhythm S1 S2 Gastrointestinal (Abdomen): Abdomen is not distended, soft, non-tender to palpation, no guarding, no palpable hepatosplenomegaly, normal bowel sounds Musculoskeletal: No pedal edema Neurologic: No facial asymmetry/dysarthria, No focal weakness, sensation grossly intact Psychiatric: Alert and oriented x 3, euthymic affect, no depressed affect Resp PCR + for influenza A CXR did not show acute abnormalities Acute resp failure with hypoxia Asthma exacerbation Influenza infection Continue oxygen supplementation Check ABG Continue nebs Got solumedrol in ER. Change to prednisone EKG noted some lateral T wave changes which are not new Initial trop is negative. Will repeat 6h from previous one Telemetry monitoring Resume home metoprolol, levothyroxine, lexapro, ativan Agree with other plans as detailed by Rox Lomas PA-C
--- NOTE | 2022-07-08 17:55 | Electrocardiogram Report ---
Test Reason : Blood Pressure : / mmHG Vent. Rate : 111 BPM Atrial Rate : 111 BPM P-R Int : 142 ms QRS Dur : 084 ms QT Int : 336 ms P-R-T Axes : 044 008 -66 degrees QTc Int : 456 ms Poor data quality, interpretation may be adversely affected Sinus tachycardia Nonspecific ST and T wave abnormality Abnormal ECG When compared with ECG of 11-JAN-2019 12:31, Vent. rate has increased BY 43 BPM Nonspecific T wave abnormality, worse in Inferior leads Inverted T waves have replaced nonspecific T wave abnormality in Lateral leads Confirmed by Gamal Rios ([id number]) on 07/08/2022 5:55:35 PM Referred By: ED Confirmed By:Stephan Rios
[2022-07-08] MEDS ORDERED: ONDANSETRON INJ 2 MG/ML 2 ML VIAL IV PRN (18:30)
[2022-07-08] MEDS ORDERED: POLYETHYLENE (MIRALAX) 17 GM PACK PO PRN (18:30)
[2022-07-08] MEDS ORDERED: COUGH DROP (SUGAR FREE) LOZ 24 LOZ/1 BOX BUCCAL PRN (18:34)
[2022-07-08] MEDS ORDERED: COUGH DROP (SUGAR FREE) LOZ 24 LOZ/1 BOX BUCCAL ONE (18:39)
[2022-07-08] MEDS: ENOXAPARIN INJ 40 MG/0.4 ML SYR SQ SCH (19:39)
[2022-07-08] MEDS: AMITRIPTYLINE HCL 10 MG TAB PO SCH (19:41)
[2022-07-08] MEDS: METOPROLOL TARTRATE 25 MG TAB PO SCH (19:42)
[2022-07-08] MEDS: ALBUT/IPRATROP 3MG/0.5MG NEB 3 ML VIAL NEB SCH (19:47)
[2022-07-09] MEDS: PANTOprazole 40 MG TAB PO SCH (06:25)
[2022-07-09] MEDS: LEVOTHYROXINE SODIUM 175 MCG TABLET PO SCH (06:26)
[2022-07-09 06:42] LABS: Hematocrit (blood only) 35.8 % (34.1-44.9); Hemoglobin 11.3 g/dl (12.0-16.0); Mean Corpuscular Hemoglobin 27.2 pg (25.0-34.0); Mean Corpuscular Hgb Conc 31.6 g/dL (32.0-36.0); Mean Corpuscular Volume 86.1 fL (80.0-100.0); Mean Platelet Volume 10.2 fL (9.4-12.3); Platelet Count 218 K/uL (130-400); RDW Coefficient of Variation 15.4 % (11.5-14.5); RDW Standard Deviation 48.2 fL (36.4-46.3); Red Blood Count 4.16 M/uL (3.93-5.22); White Blood Count 3.95 K/ul (4.8-10.8)
[2022-07-09 07:01] LABS: BUN Creatinine Ratio 17.1 (10-20); Calcium 8.7 mg/dl (8.5-10.1); Creatinine Clr Calc Pharmacy 92.2 ml/min; Est GFR (African American) 92.1 ml/min; Est GFR (Non-African American) 79.4 ml/min; Potassium 4.5 mmol/L (3.5-5.1)
[2022-07-09] MEDS: ALBUT/IPRATROP 3MG/0.5MG NEB 3 ML VIAL NEB SCH ×4 (07:27→19:39)
[2022-07-09] MEDS: METOPROLOL TARTRATE 25 MG TAB PO SCH ×2 (07:50→20:40)
[2022-07-09] MEDS: LORazepam 1 MG TAB PO PRN ×2 (07:50→16:26)
[2022-07-09] MEDS: CALCITRIOL 0.25 MCG CAPSULE PO SCH (07:50)
[2022-07-09] MEDS: MULTIVITAMIN CHEWABLE TAB PO SCH (07:51)
[2022-07-09] MEDS: CITALOPRAM 40 MG TAB PO SCH (07:51)
[2022-07-09] MEDS: FLUTICASONE FUROATE 100MCG 14 PUFFS/INHALER INH SCH (07:52)
[2022-07-09] MEDS: predniSONE 20 MG TAB PO SCH (07:52)
[2022-07-09] MEDS: RALOXIFENE HCL 60 MG TAB PO SCH (07:54)
[2022-07-09] MEDS: ACETAMINOPHEN 325 MG TAB PO PRN (09:04)
--- NOTE | 2022-07-09 10:54 | Electrocardiogram Report ---
Test Reason : Blood Pressure : / mmHG Vent. Rate : 069 BPM Atrial Rate : 069 BPM P-R Int : 130 ms QRS Dur : 086 ms QT Int : 436 ms P-R-T Axes : 048 -05 -02 degrees QTc Int : 467 ms Normal sinus rhythm Nonspecific T wave abnormality Abnormal ECG When compared with ECG of 08-JUL-2022 10:47, Vent. rate has decreased BY 42 BPM T wave inversion no longer evident in Lateral leads Confirmed by Gamal Rios ([id number]) on 07/09/2022 10:53:41 AM Referred By: REFERRED SELF Confirmed By:Stephan Rios
[2022-07-09] MEDS: guaiFENesin 600 MG TABCR PO SCH ×2 (12:39→20:38)
--- NOTE | 2022-07-09 13:41 | Hospitalist Progress Note ---
Date of Service July 09, 2022 Assessment & Plan (1) Acute hypoxemic respiratory failure: (2) Influenza A: (3) Asthma exacerbation: (4) Depression: (5) Anxiety: (6) Acquired hypothyroidism: (7) RADHA (obstructive sleep apnea): Plan 56yo F with a PMH of asthma, hypertension, depression, anxiety, history of gastric bypass, hypothyroidism, RADHA and other medical problems listed below who presents with flulike symptoms and chest tightness since yesterday and was found to have hypoxia and Flu A. Acute hypoxic respiratory failure Influenza A Asthma exacerbation Developed symptoms the day prior to presentation Resp panel was positive for influenza A CXR did not show acute abnormalities Patient declined ABG Received solumedrol in ED. Continue prednisone 40mg daily Duonebs QID Continue supplemental oxygen and wean as tolerated Continue Tamiflu Abnormal EKG EKG noted some lateral T wave changes which are seen on previous EKGs Trop trend was negative Anxiety Depression Continue home citalopram and prn ativan Hypertension Continue home metoprolol Hypothyroidism Continue levothyroxine RADHA CPAP use HS at home. DVT Ppx: SQ lovenox Code status: FULL PCP: Mandeep Dispo: Med tele Admission and Anticipated Discharge Date Admission Date: July 09, 2022 Subjective Patient seen and examined Continues to report cough, chest tightness/pain with cough, exertional dyspnea, myalgias Denied fever, chills Denied nausea, vomiting, abd pain, diarrhea Denied dysuria, freq, urgency Physical Exam Constitutional: + well hydrated and + obese; no acute distress Eyes: PERRL, conjunctivae normal, anicteric sclerae ENMT: external ear and nose normal, oropharynx normal Respiratory: normal respiratory effort; no respiratory distress Good air entry bilaterally. Scattered rhonchi Cardiovascular: Rate/Rhythm: regular rate and regular rhythm S1 S2 Gastrointestinal (Abdomen): normal bowel sounds, soft, nontender, no hepatosplenomegaly Musculoskeletal: no cyanosis or clubbing, extremities motor strength 5/5 Neurologic: PERRL, EOMI, accommodation nl, no face palsy, no dysarthria Psychiatric: A+Ox3, euthymic affect Results & Data Results & Data ([facility]) Vital Signs (Past 12 Hours) Vital Signs Temp Pulse Pulse Resp BP Pulse Ox O2 Del Method 07/09/22 11:50 70 20 91 Nasal Cannula 07/09/22 11:24 36.8 C 74 16 121/76 91 Nasal Cannula 07/09/22 09:00 Nasal Cannula 07/09/22 07:43 36.7 C 79 18 125/82 94 Nasal Cannula 07/09/22 07:29 77 18 97 Nasal Cannula 07/09/22 07:15 61 07/09/22 02:43 36.9 C 78 18 146/93 H 93 Nasal Cannula O2 Flow Rate 07/09/22 11:50 2 07/09/22 11:24 2 07/09/22 09:00 2 07/09/22 07:43 2 07/09/22 07:29 2 07/09/22 07:15 07/09/22 02:43 2 Laboratory Results Abnormal lab results 07/08/22 07/09/22 07/09/22 Range/Units 12:10 06:15 06:15 WBC 3.95 L (4.8-10.8) K/ul Hgb 11.3 L (12.0-16.0) g/dl MCHC 31.6 L (32.0-36.0) g/dL RDW Std Deviation 48.2 H (36.4-46.3) fL RDW Coeff of Jacy 15.4 H (11.5-14.5) % Chloride 108 H (98-107) mmol/L Influenza Type A (PCR) Positive A* (Neg) (1) Asthma exacerbation Asthma persistence: persistent Asthma severity: moderate Qualified Code(s): J45.41 - Moderate persistent asthma with (acute) exacerbation
[2022-07-09] MEDS: ENOXAPARIN INJ 40 MG/0.4 ML SYR SQ SCH (20:38)
[2022-07-09] MEDS: AMITRIPTYLINE HCL 10 MG TAB PO SCH (20:39)
[2022-07-10] MEDS: ALBUT/IPRATROP 3MG/0.5MG NEB 3 ML VIAL NEB SCH ×4 (05:29→19:29)
[2022-07-10] MEDS: LORazepam 1 MG TAB PO PRN ×3 (06:07→19:51)
[2022-07-10] MEDS: PANTOprazole 40 MG TAB PO SCH (06:07)
[2022-07-10] MEDS: LEVOTHYROXINE SODIUM 175 MCG TABLET PO SCH (06:08)
[2022-07-10 07:10] LABS: Hematocrit (blood only) 37.6 % (34.1-44.9); Hemoglobin 11.8 g/dl (12.0-16.0); Mean Corpuscular Hemoglobin 27.1 pg (25.0-34.0); Mean Corpuscular Hgb Conc 31.4 g/dL (32.0-36.0); Mean Corpuscular Volume 86.2 fL (80.0-100.0); Mean Platelet Volume 9.7 fL (9.4-12.3); Platelet Count 230 K/uL (130-400); RDW Coefficient of Variation 15.6 % (11.5-14.5); RDW Standard Deviation 49.5 fL (36.4-46.3); Red Blood Count 4.36 M/uL (3.93-5.22); White Blood Count 4.74 K/ul (4.8-10.8)
[2022-07-10] MEDS: RALOXIFENE HCL 60 MG TAB PO SCH (07:28)
[2022-07-10] MEDS: MULTIVITAMIN CHEWABLE TAB PO SCH (07:28)
[2022-07-10] MEDS: METOPROLOL TARTRATE 25 MG TAB PO SCH ×2 (07:28→19:54)
[2022-07-10] MEDS: CALCITRIOL 0.25 MCG CAPSULE PO SCH (07:28)
[2022-07-10] MEDS: guaiFENesin 600 MG TABCR PO SCH ×2 (07:30→19:52)
[2022-07-10] MEDS: CITALOPRAM 40 MG TAB PO SCH (07:30)
[2022-07-10] MEDS: predniSONE 20 MG TAB PO SCH (07:30)
[2022-07-10] MEDS: FLUTICASONE FUROATE 100MCG 14 PUFFS/INHALER INH SCH (07:31)
[2022-07-10 07:32] LABS: BUN Creatinine Ratio 21.4 (10-20); Calcium 8.3 mg/dl (8.5-10.1); Creatinine Clr Calc Pharmacy 89.9 ml/min; Est GFR (African American) 89.4 ml/min; Est GFR (Non-African American) 77.2 ml/min; Potassium 3.3 mmol/L (3.5-5.1)
[2022-07-10] MEDS ORDERED: POTASSIUM CHLORIDE CRTAB 20 MEQ TABCR PO STA (07:40)
[2022-07-10] MEDS: ACETAMINOPHEN 325 MG TAB PO PRN ×2 (09:59→18:10)
[2022-07-10] MEDS: BENZONATATE 100 MG CAPSULE PO PRN ×2 (09:59→18:10)
--- NOTE | 2022-07-10 10:03 | Hospitalist Progress Note ---
Date of Service July 10, 2022 Assessment & Plan (1) Acute hypoxemic respiratory failure: (2) Influenza A: (3) Asthma exacerbation: (4) Depression: (5) Anxiety: (6) Acquired hypothyroidism: (7) RADHA (obstructive sleep apnea): Plan 56yo F with a PMH of asthma, hypertension, depression, anxiety, history of gastric bypass, hypothyroidism, RADHA and other medical problems listed below who presents with flulike symptoms and chest tightness since yesterday and was found to have hypoxia and Flu A. Acute hypoxic respiratory failure Influenza A Asthma exacerbation Developed symptoms the day prior to presentation Resp panel was positive for influenza A CXR did not show acute abnormalities Patient declined ABG Received solumedrol in ED. Continue prednisone 40mg daily Continue Duonebs Successfully weaned off oxygen Continue Tamiflu Continue supportive care with antitussives Abnormal EKG EKG noted some lateral T wave changes which are seen on previous EKGs Trop trend was negative Anxiety Depression Continue home citalopram and prn ativan Hypertension Continue home metoprolol Hypothyroidism Continue levothyroxine RADHA CPAP use HS at home. DVT Ppx: SQ lovenox Code status: FULL PCP: Mandeep Dispo: Med tele Admission and Anticipated Discharge Date Admission Date: July 09, 2022 Subjective Patient seen and examined Still has cough, chest tightness/pain with cough, exertional dyspnea, myalgias, weakness Successfully weaned off oxygen Denied fever, chills Denied nausea, vomiting, abd pain, diarrhea Denied dysuria, freq, urgency Physical Exam Constitutional: + well hydrated and + obese; no acute distress Eyes: PERRL, conjunctivae normal, anicteric sclerae ENMT: external ear and nose normal, oropharynx normal Respiratory: normal respiratory effort; no respiratory distress Decreased breath sounds, scattered expiratory wheeze Cardiovascular: Rate/Rhythm: regular rate and regular rhythm S1 S2 Gastrointestinal (Abdomen): normal bowel sounds, soft, nontender, no hepatosplenomegaly Musculoskeletal: no cyanosis or clubbing, extremities motor strength 5/5 Neurologic: PERRL, EOMI, accommodation nl, no face palsy, no dysarthria Psychiatric: A+Ox3, euthymic affect Results & Data Results & Data ([facility]) Vital Signs (Past 12 Hours) Vital Signs Temp Pulse Pulse Resp BP Pulse Ox O2 Del Method 07/10/22 09:21 Room Air 07/10/22 07:11 36.7 C 75 18 149/84 H 92 Room Air 07/10/22 05:53 75 20 94 Room Air 07/10/22 04:25 36.9 C 79 20 144/80 H 92 Room Air 07/10/22 00:53 80 07/10/22 00:53 Room Air 07/10/22 00:26 36.8 C 73 18 150/96 H 93 Room Air Laboratory Results Abnormal lab results 07/10/22 07/10/22 Range/Units 06:55 06:55 WBC 4.74 L (4.8-10.8) K/ul Hgb 11.8 L (12.0-16.0) g/dl MCHC 31.4 L (32.0-36.0) g/dL RDW Std Deviation 49.5 H (36.4-46.3) fL RDW Coeff of Jacy 15.6 H (11.5-14.5) % Potassium 3.3 L D (3.5-5.1) mmol/L BUN/Creatinine Ratio 21.4 H (10-20) Calcium 8.3 L (8.5-10.1) mg/dl (1) Asthma exacerbation Asthma persistence: persistent Asthma severity: moderate Qualified Code(s): J45.41 - Moderate persistent asthma with (acute) exacerbation
[2022-07-10] MEDS: ENOXAPARIN INJ 40 MG/0.4 ML SYR SQ SCH (19:51)
[2022-07-10] MEDS ORDERED: KETOROLAC TROMETHAMINE 15 MG/ML VIAL IV ONE (19:52)
[2022-07-10] MEDS: AMITRIPTYLINE HCL 10 MG TAB PO SCH (19:53)
[2022-07-10] MEDS ORDERED: KETOROLAC TROMETHAMINE 15 MG/ML VIAL IM STA (20:42)
[2022-07-11] MEDS: LEVOTHYROXINE SODIUM 175 MCG TABLET PO SCH (05:24)
[2022-07-11] MEDS: PANTOprazole 40 MG TAB PO SCH (05:25)
[2022-07-11] MEDS: ALBUT/IPRATROP 3MG/0.5MG NEB 3 ML VIAL NEB SCH ×4 (07:01→19:07)
[2022-07-11] MEDS: IBUPROFEN 200 MG TAB PO PRN (08:06)
[2022-07-11] MEDS: CITALOPRAM 40 MG TAB PO SCH (08:06)
[2022-07-11] MEDS: guaiFENesin 600 MG TABCR PO SCH ×2 (08:06→19:35)
[2022-07-11] MEDS: BENZONATATE 100 MG CAPSULE PO PRN ×2 (08:06→19:32)
[2022-07-11] MEDS: CALCITRIOL 0.25 MCG CAPSULE PO SCH (08:07)
[2022-07-11] MEDS: predniSONE 20 MG TAB PO SCH (08:07)
[2022-07-11] MEDS: MULTIVITAMIN CHEWABLE TAB PO SCH (08:07)
[2022-07-11] MEDS: FLUTICASONE FUROATE 100MCG 14 PUFFS/INHALER INH SCH (08:08)
[2022-07-11] MEDS: METOPROLOL TARTRATE 25 MG TAB PO SCH ×2 (08:08→19:35)
[2022-07-11] MEDS: RALOXIFENE HCL 60 MG TAB PO SCH (08:08)
[2022-07-11 09:34] LABS: Hematocrit (blood only) 37.8 % (34.1-44.9); Hemoglobin 11.9 g/dl (12.0-16.0); Mean Corpuscular Hemoglobin 27.2 pg (25.0-34.0); Mean Corpuscular Hgb Conc 31.5 g/dL (32.0-36.0); Mean Corpuscular Volume 86.3 fL (80.0-100.0); Mean Platelet Volume 10.4 fL (9.4-12.3); Platelet Count 250 K/uL (130-400); RDW Coefficient of Variation 15.5 % (11.5-14.5); RDW Standard Deviation 48.7 fL (36.4-46.3); Red Blood Count 4.38 M/uL (3.93-5.22); White Blood Count 5.32 K/ul (4.8-10.8)
[2022-07-11 10:04] LABS: BUN Creatinine Ratio 21.7 (10-20); Calcium 8.5 mg/dl (8.5-10.1); Creatinine Clr Calc Pharmacy 81.8 ml/min; Est GFR (African American) 80.1 ml/min; Est GFR (Non-African American) 69.1 ml/min; Potassium 3.5 mmol/L (3.5-5.1)
[2022-07-11] MEDS: LORazepam 1 MG TAB PO PRN ×2 (14:37→19:32)
--- NOTE | 2022-07-11 16:58 | Hospitalist Progress Note ---
Date of Service July 11, 2022 Assessment & Plan (1) Acute hypoxemic respiratory failure: (2) Influenza A: (3) Asthma exacerbation: (4) Depression: (5) Anxiety: (6) Acquired hypothyroidism: (7) RADHA (obstructive sleep apnea): Plan Patient is a 56 yr female with H/O Asthma, hypertension, depression, anxiety, history of gastric bypass, hypothyroidism, RADHA and other medical problems listed below who presents with flulike symptoms and chest tightness since yesterday and was found to have hypoxia and Flu A. Acute hypoxic respiratory failure Influenza A Acute Asthma exacerbation Resp panel was positive for influenza A CXR:No acute process. Patient declined ABG Continue nebs, prednisone, antitussives Weaned off of supplemental oxygen Saturating well on room air, Apparently Tamiflu was not started for that. No indication to be started currently Abnormal EKG EKG noted some lateral T wave changes which are seen on previous EKGs Trop trend was negative Less likely ACS Anxiety Depression Continue home citalopram and prn ativan Hypertension Continue metoprolol Hypothyroidism Continue levothyroxine RADHA CPAP use HS at home. Morbid obesity BMI 47.4 DVT Px: SQ Lovenox Code status: FULL STATUS Admission and Anticipated Discharge Date Admission Date: July 09, 2022 Subjective Patient is seen and examined at bedside Reports mild cough, chest congestion Dyspnea on exertion Also reports minimal pleuritic discomfort with cough No other complaints Saturating well on room air Denies any dizziness, nausea, abdominal pain, diarrhea Review of Systems Review of Systems: All systems reviewed & are unremarkable except as noted in Subjective Physical Exam Physical Exam: Physical Exam: Vitals signs as noted above General Appearance:Morbidly Obese, no apparent distress Head: normocephalic, Atraumatic Eyes: normal inspection, EOMI Neck: supple, Trachea midline Respiratory/Chest: Decreased breath sounds, B/L wheezes, No accessory muscle use Cardiovascular: S1, S2, No murmur Abdomen/GI:Soft, Non tender, Bowel sounds present Extremities/Musculoskeletal:normal inspection, Trace pedal edema Neurologic/Psych:AAOX3, grossly no focal neurological deficits Skin: normal color, warm Results & Data Results & Data ([facility]) Vital Signs (Past 12 Hours) Vital Signs Temp Pulse Pulse Resp BP BP Pulse Ox 07/11/22 15:44 36.9 C 73 20 129/87 94 07/11/22 15:11 64 18 92 07/11/22 08:00 65 07/11/22 07:00 07/11/22 11:11 36.7 C 68 20 125/78 92 07/11/22 10:42 64 18 91 07/11/22 08:01 37.0 C 71 20 137/87 92 07/11/22 07:01 71 18 97 O2 Del Method 07/11/22 15:44 Room Air 07/11/22 15:11 Room Air 07/11/22 08:00 07/11/22 07:00 Room Air 07/11/22 11:11 Room Air 07/11/22 10:42 Room Air 07/11/22 08:01 Room Air 07/11/22 07:01 Room Air Laboratory Results Short CBC 07/11/22 Range/Units 08:49 WBC 5.32 (4.8-10.8) K/ul Hgb 11.9 L (12.0-16.0) g/dl Hct 37.8 (34.1-44.9) % Plt Count 250 (130-400) K/uL BMP 07/11/22 08:49 Sodium 139 Potassium 3.5 Chloride 103 Carbon Dioxide 27 BUN 20 Creatinine 0.92 Glucose 135 H Calcium 8.5 (1) Asthma exacerbation Asthma persistence: persistent Asthma severity: moderate Qualified Code(s): J45.41 - Moderate persistent asthma with (acute) exacerbation
[2022-07-11] MEDS: ENOXAPARIN INJ 40 MG/0.4 ML SYR SQ SCH (19:32)
[2022-07-11] MEDS: AMITRIPTYLINE HCL 10 MG TAB PO SCH (19:34)
[2022-07-12] MEDS: ALBUT/IPRATROP 3MG/0.5MG NEB 3 ML VIAL NEB SCH ×2 (05:26→11:49)
[2022-07-12] MEDS: LEVOTHYROXINE SODIUM 175 MCG TABLET PO SCH (05:45)
[2022-07-12] MEDS: IBUPROFEN 200 MG TAB PO PRN (05:45)
[2022-07-12] MEDS: PANTOprazole 40 MG TAB PO SCH (05:45)
[2022-07-12 08:45] LABS: BUN Creatinine Ratio 22.8 (10-20); Calcium 8.8 mg/dl (8.5-10.1); Creatinine Clr Calc Pharmacy 81.4 ml/min; Est GFR (African American) 80.1 ml/min; Est GFR (Non-African American) 69.1 ml/min; Magnesium 1.9 mg/dl (1.7-2.4); Potassium 3.7 mmol/L (3.5-5.1)
[2022-07-12] MEDS: METOPROLOL TARTRATE 25 MG TAB PO SCH (08:57)
[2022-07-12] MEDS: FLUTICASONE FUROATE 100MCG 14 PUFFS/INHALER INH SCH (08:57)
[2022-07-12] MEDS: CITALOPRAM 40 MG TAB PO SCH (08:58)
[2022-07-12] MEDS: CALCITRIOL 0.25 MCG CAPSULE PO SCH (08:59)
[2022-07-12] MEDS: MULTIVITAMIN CHEWABLE TAB PO SCH (08:59)
[2022-07-12] MEDS: RALOXIFENE HCL 60 MG TAB PO SCH (08:59)
[2022-07-12] MEDS: guaiFENesin 600 MG TABCR PO SCH (08:59)
[2022-07-12] MEDS: predniSONE 20 MG TAB PO SCH (08:59)
--- NOTE | 2022-07-12 13:16 | Hospitalist Progress Note ---
Date of Service July 12, 2022 Assessment & Plan (1) Acute hypoxemic respiratory failure: (2) Influenza A: (3) Asthma exacerbation: (4) Depression: (5) Anxiety: (6) Acquired hypothyroidism: (7) RADHA (obstructive sleep apnea): Plan Patient is a 56 yr female with H/O Asthma, hypertension, depression, anxiety, history of gastric bypass, hypothyroidism, RADHA and other medical problems listed below who presents with flulike symptoms and chest tightness since yesterday and was found to have hypoxia and Flu A. Acute hypoxic respiratory failure Influenza A Acute Asthma exacerbation Resp panel was positive for influenza A CXR:No acute process. Patient declined ABG Continue nebs, prednisone, antitussives Weaned off of supplemental oxygen Saturating well on room air Apparently Tamiflu was not started for that. No indication to be start on it currently 2 step: Did not qualify for oxygen Abnormal EKG EKG noted some lateral T wave changes which are seen on previous EKGs Trop trend was negative Less likely ACS Anxiety Depression Continue home citalopram and prn Ativan Hypertension Continue metoprolol Hypothyroidism Continue levothyroxine RADHA CPAP use HS at home. Morbid obesity BMI 47.4 DVT Px: SQ Lovenox Code status: FULL STATUS Admission and Anticipated Discharge Date Admission Date: July 09, 2022 Subjective Patient is seen and examined at bedside States feeling much better today Currently has minimal cough Chest congestion, dyspnea, pleuritic chest discomfort resolved Offers no other complaint Also denies any dizziness, nausea, abdominal pain, diarrhea Had 2 step earlier today Review of Systems Review of Systems: All systems reviewed & are unremarkable except as noted in Subjective Physical Exam Physical Exam: Physical Exam: Vitals signs as noted above General Appearance:Morbidly Obese, no apparent distress Head: normocephalic, Atraumatic Eyes: normal inspection, EOMI Neck: supple, Trachea midline Respiratory/Chest: Decreased breath sounds, CTA, No accessory muscle use Cardiovascular: S1, S2, No murmur Abdomen/GI:Soft, Non tender, Bowel sounds present Extremities/Musculoskeletal:normal inspection, Trace pedal edema Neurologic/Psych:AAOX3, grossly no focal neurological deficits Skin: normal color, warm Results & Data Results & Data ([facility]) Vital Signs (Past 12 Hours) Vital Signs Temp Pulse Pulse Pulse Pulse Pulse Resp 07/12/22 11:50 68 16 07/12/22 11:16 36.7 C 77 16 07/12/22 10:24 36.8 C 69 20 07/12/22 09:22 117 H 89 104 H 07/12/22 07:39 07/12/22 07:00 72 07/12/22 07:22 36.9 C 81 16 07/12/22 05:27 81 18 07/12/22 03:25 36.7 C 73 18 Resp Resp Resp BP Pulse Ox Pulse Ox Pulse Ox 07/12/22 11:50 96 07/12/22 11:16 110/76 92 07/12/22 10:24 119/71 92 07/12/22 09:22 18 18 18 92 95 07/12/22 07:39 07/12/22 07:00 07/12/22 07:22 119/80 91 07/12/22 05:27 93 07/12/22 03:25 134/91 93 Pulse Ox O2 Del Method 07/12/22 11:50 Room Air 07/12/22 11:16 Room Air 07/12/22 10:24 Room Air 07/12/22 09:22 95 07/12/22 07:39 Room Air 07/12/22 07:00 07/12/22 07:22 Room Air 07/12/22 05:27 Room Air 07/12/22 03:25 Room Air Laboratory Results [facility] 07/12/22 07:58 Sodium 140 Potassium 3.7 Chloride 103 Carbon Dioxide 30 BUN 21 Creatinine 0.92 Glucose 86 Calcium 8.8 (1) Asthma exacerbation Asthma persistence: persistent Asthma severity: moderate Qualified Code(s): J45.41 - Moderate persistent asthma with (acute) exacerbation
--- NOTE | 2022-07-12 13:25 | Discharge Summary ---
Date of Service July 12, 2022 Admission HPI Per Admitting Provider This is a 56yo F with a PMH of asthma, hypertension, depression, anxiety, history of gastric bypass, hypothyroidism, RADHA and other medical problems listed below who presents with flulike symptoms and chest tightness since yesterday. Patient started to feel poorly yesterday with chills, body aches, congestion with mild productive cough, wheezing and chest tightness that is non-radiating. Chest discomfort does not feel similar to when she had a heart attack. Also endorsing nausea and diarrhea but no vomiting. Patient was recently caring for boyfriend who had RSV so has not been able to follow up with uro environmental attorney for abdominal fullness. Has ongoing urinary incontinence. Did not check if she had a fever. No headache, vomiting, dysuria or constipation. Admission Exam Per Admitting Provider On exam, General: Obese, in no distress Eyes: PERRL, conjunctivae normal, not pale, anicteric sclerae, EOM intact bilaterally ENMT: External ear and nose normal, oropharynx normal Respiratory: On nasal cannula, no respiratory distress, Scattered rhonchi Cardiovascular: Tachycardic, regular rhythm S1 S2 Gastrointestinal (Abdomen): Abdomen is not distended, soft, non-tender to palpation, no guarding, no palpable hepatosplenomegaly, normal bowel sounds Musculoskeletal: No pedal edema Neurologic: No facial asymmetry/dysarthria, No focal weakness, sensation grossly intact Psychiatric: Alert and oriented x 3, euthymic affect, no depressed affect Principal Diagnosis Acute hypoxic respiratory failure with Hypoxia Influenza A infection Acute Asthma exacerbation Discharge Data Allergies Allergy/AdvReac Type Severity Reaction Status Date / Time Iodinated Contrast Media Allergy Severe FLUSHING, Verified 11/21/21 22:51 SHORTNESS OF BREATH lidocaine Allergy Severe SHORTNESS Verified 11/21/21 22:51 OF BREATH ranitidine Allergy Severe NAUSEA, Verified 11/21/21 22:51 HIVES Penicillins Allergy Intermediate HIVES Verified 11/21/21 22:51 Sulfa (Sulfonamide Allergy Intermediate HIVES Verified 11/21/21 22:51 Antibiotics) chlorpromazine Allergy Mild Unknown Verified 11/21/21 22:51 prochlorperazine Allergy Mild Unknown Verified 11/21/21 22:51 promethazine Allergy Mild Unknown Verified 11/21/21 22:51 clarithromycin AdvReac Severe RASH Verified 11/21/21 22:51 clonazepam AdvReac Severe PARANOIA Verified 11/21/21 22:51 Corticosteroids AdvReac Severe ALTERED Verified 11/21/21 22:51 (Glucocorticoids) PERSONALITY doxycycline AdvReac Intermediate INEFFECTIVE Verified 11/21/21 22:51 fentanyl AdvReac Intermediate VOMITING, Verified 11/21/21 22:51 HEADACHE, ketorolac AdvReac Intermediate HALLUCINATI Verified 11/21/21 22:51 ONS tramadol AdvReac Intermediate HALLUCINATE Verified 11/21/21 22:51 Consultations 07/08/22 14:10 ED Decision to Admit Stat Procedures Performed Laboratory Results WBC 5.32 K/ul (4.8-10.8) 07/11/22 08:49 RBC 4.38 M/uL (3.93-5.22) 07/11/22 08:49 Hgb 11.9 g/dl (12.0-16.0) L 07/11/22 08:49 Hct 37.8 % (34.1-44.9) 07/11/22 08:49 MCV 86.3 fL (80.0-100.0) 07/11/22 08:49 MCH 27.2 pg (25.0-34.0) 07/11/22 08:49 MCHC 31.5 g/dL (32.0-36.0) L 07/11/22 08:49 RDW Std Deviation 48.7 fL (36.4-46.3) H 07/11/22 08:49 RDW Coeff of Jacy 15.5 % (11.5-14.5) H 07/11/22 08:49 Plt Count 250 K/uL (130-400) 07/11/22 08:49 MPV 10.4 fL (9.4-12.3) 07/11/22 08:49 Immature Gran % (Auto) 0.6 % 07/08/22 12:10 Neut % (Auto) 69.4 % 07/08/22 12:10 Lymph % (Auto) 10.0 % 07/08/22 12:10 [place] % (Auto) 18.8 % 07/08/22 12:10 Eos % (Auto) 0.4 % 07/08/22 12:10 Baso % (Auto) 0.8 % 07/08/22 12:10 Neut # (Auto) 3.31 K/uL (1.4-6.5) 07/08/22 12:10 Lymph # (Auto) 0.48 K/uL (1.2-3.4) L 07/08/22 12:10 [place] # (Auto) 0.90 K/uL (0.24-0.82) H 07/08/22 12:10 Eos # (Auto) 0.02 K/uL (0-0.50) 07/08/22 12:10 Baso # (Auto) 0.04 K/uL (0-0.2) 07/08/22 12:10 Immature Gran # (Auto) 0.03 K/uL (0.00-0.02) H 07/08/22 12:10 PT 10.9 Seconds (9.0-12.0) 07/08/22 12:10 INR 1.0 (0.9-1.1) 07/08/22 12:10 Sodium 140 mmol/L (136-145) 07/12/22 07:58 Potassium 3.7 mmol/L (3.5-5.1) 07/12/22 07:58 Chloride 103 mmol/L (98-107) 07/12/22 07:58 Carbon Dioxide 30 mmol/L (21-32) 07/12/22 07:58 Anion Gap 7 (3-11) 07/12/22 07:58 BUN 21 mg/dl (6-23) 07/12/22 07:58 Creatinine 0.92 mg/dl (0.6-1.2) 07/12/22 07:58 Est Cr Clr Drug Dosing 81.4 ml/min 07/12/22 07:58 Est GFR ( Amer) 80.1 ml/min 07/12/22 07:58 Est GFR (Non-Af Amer) 69.1 ml/min 07/12/22 07:58 BUN/Creatinine Ratio 22.8 (10-20) H 07/12/22 07:58 Glucose 86 mg/dl (70-99(Fasting)) 07/12/22 07:58 Calcium 8.8 mg/dl (8.5-10.1) 07/12/22 07:58 Magnesium 1.9 mg/dl (1.7-2.4) 07/12/22 07:58 Total Bilirubin 0.4 mg/dl (0.2-1.0) 07/08/22 12:10 AST 17 U/L (13-39) 07/08/22 12:10 ALT 15 U/L (7-52) 07/08/22 12:10 Alkaline Phosphatase 89 U/L (34-104) 07/08/22 12:10 Troponin I High Sens 9.8 pg/ml (0-14) D 07/08/22 18:16 Total Protein 7.4 gm/dl (6.0-8.3) 07/08/22 12:10 Albumin 4.2 gm/dl (3.4-5.0) 07/08/22 12:10 Globulin 3.2 gm/dl (2.5-4.0) 07/08/22 12:10 Albumin/Globulin Ratio 1.3 (0.9-2) 07/08/22 12:10 TSH 0.039 uIu/ml (0.300-4.500) L 07/08/22 12:10 Free T4 1.04 ng/dl (0.61-1.60) 07/08/22 12:10 SARS-CoV-2 (PCR) NEGATIVE (Negative) 07/08/22 12:10 Influenza Type A (PCR) Positive (Neg) A* 07/08/22 12:10 Influenza Type B (PCR) Negative (Neg) 07/08/22 12:10 RSV (RT-PCR) Negative (Neg) 07/08/22 12:10 Impressions Chest X-Ray 07/08/22 11:39 XR chest 1V portable HISTORY: 56 years-old Female weakness acute weakness COMPARISON: Chest and rib radiographs 11/21/2021 TECHNIQUE: AP view of the chest FINDINGS: Cardiomediastinal and hilar silhouettes are within normal limits. No pneumothorax, pleural effusion, airspace consolidation or overt pulmonary edema. Degenerative changes of the shoulders and spine. IMPRESSION: No acute process. ACT 112: Negative or not required by law. The above report was generated using voice recognition software. It may contain grammatical, syntax or spelling errors. Electronically signed by: Stanley Verma M.D. 07/08/2022 12:17 PM Hospital Course (1) Acute hypoxemic respiratory failure: (2) Influenza A: (3) Asthma exacerbation: (4) Depression: (5) Anxiety: (6) Acquired hypothyroidism: (7) RADHA (obstructive sleep apnea): Plan Patient is a 56 yr female with H/O Asthma, hypertension, depression, anxiety, history of gastric bypass, hypothyroidism, RADHA and other medical problems listed below who presents with flulike symptoms and chest tightness since yesterday and was found to have hypoxia and Flu A. Acute hypoxic respiratory failure Influenza A Acute Asthma exacerbation Resp panel was positive for influenza A CXR:No acute process. Patient declined ABG Continue nebs, prednisone, antitussives Weaned off of supplemental oxygen Saturating well on room air Apparently Tamiflu was not started for that. No indication to be start on it currently 2 step: Did not qualify for oxygen Abnormal EKG EKG noted some lateral T wave changes which are seen on previous EKGs Trop trend was negative Less likely ACS Anxiety Depression Continue home citalopram and prn Ativan Hypertension Continue metoprolol Hypothyroidism Continue levothyroxine RADHA CPAP use HS at home. Morbid obesity BMI 47.4 DVT Px: SQ Lovenox Code status: FULL STATUS Total Time Total Time Spent Total Time Spent (In Minutes): 45 minutes Discharge Plan Discharge Items Patient Disposition: Home - Self-Care Reason For Visit: SOB,CHEST TIGHTNESS,CONGESTION Discharge Diagnosis: Acute hypoxic respiratory failure with Hypoxia Influenza A infection Acute Asthma exacerbation Activity: Per Instructions section Exercise/Sports: Gradually increase as tolerated Non-emergency contact: Primary Care Provider and Java Front End Web Developer Call non-emergency contact if: you have any medication questions, your symptoms worsen, your pain is concerning for you and you have a fever Follow-up/Referrals: Diane Kaufman, [Primary Care Provider] - (Date & Time 07/16/2022 11:00 AM Provider Josias Hernandez MD Department [facility] ) Diet: Heart Healthy Addtl Attending Provider Instructions: Follow-up with your primary care physician on 07/16/2022 11:00 AM -- Complete the prednisone course as prescribed. Seek immediate medical attention if your symptoms reoccur or worsen Please take all medications as instructed on discharge list below. Please call if you have any questions or problems. You can reach a [facility] hospitalist on duty at [facility] 24 hours a day by calling [phone] Pending Studies at Discharge: No Stand-Alone Forms: My [facility], Work/School Release, Smoking Cessation Medications and DC Order Prescriptions: New benzonatate 100 mg Capsule 100 mg PO TID PRN (Reason: cough) Qty: 30 0RF prednisone 20 mg tablet 20 mg PO DAILY 4 Days Qty: 4 0RF Continued citalopram 40 mg Tablet 40 mg PO DAILY ondansetron 8 mg Tablet,Disintegrating 8 mg PO Q12H PRN (Reason: Nausea) raloxifene 60 mg tablet 60 mg PO DAILY albuterol sulfate 90 mcg/actuation Hfa Aerosol Inhaler 2 puff INHALATION Q4H PRN (Reason: COUGH, WHEEZE, PRIOR TO EXERCISE, SOB) calcitriol 0.25 mcg Capsule 0.25 mcg PO DAILY metoprolol tartrate 25 mg Tablet 12.5 mg PO BID Rx Instructions: 0.5 tab bid Flintstones Gummies Tablet,Chewable 1 tab PO DAILY cyanocobalamin (vitamin B-12) 1,000 mcg/mL Solution 1,000 mcg IM .[id number] levothyroxine 175 mcg tablet 175 mcg PO DAILYBB ipratropium-albuterol [DuoNeb] 0.5 mg-3 mg(2.5 mg base)/3 mL Solution For Nebulization 3 ml INHALATION QID PRN (Reason: Shortness Of Breath) amitriptyline 10 mg tablet 20 mg PO HS fluticasone propionate [Flovent HFA] 44 mcg/actuation Hfa Aerosol Inhaler 2 puff INHALATION BID Rx Instructions: usually only uses PRN sob /wheezing omeprazole 20 mg capsule,delayed release(DR/EC) 20 mg PO DAILYBB lorazepam 1 mg tablet 1 mg PO TID PRN (Reason: Anxiety) azelastine 137 mcg (0.1 %) aerosol,spray 2 spray INTRANASAL DAILY PRN (Reason: Congestion) Discharge Orders: Discharge Order (Routine); Ordered 07/12/22 Ordered By: Timothy Santo Admission Data Admit Date/Time: 07/09/22 11:39 Attending Provider: Timothy Santo Admit Provider: Millie Waters I. Primary Care Provider: Diane Kaufman Other Providers: Millie Waters I.
== END 2022-07-12 15:14 | disposition home or self-care (01) | DRG 193 ==
LOC: ED 10:34 → 2W 10:34 → SUATTDRO 07-09 11:39